=== PATIENT | male | born 2000 | race Hispanic/Latino ===

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

== ENCOUNTER 2023-02-09 12:55 | Emergency (ER) | payer BC, OTHER ==
[~2023-02-09] VITALS: Ht 180.3 cm; Wt 74.8 kg
[2023-02-09 14:10] VITALS: BP 140/75; PULSE 85; RESP 18
[2023-02-09] MEDS ORDERED: TETANUS/DIPHTHERIA TOXOID [ADULT] 0.5 ML VIAL IM ONE ×2 (18:30→19:17)
== END 2023-02-09 20:03 | disposition home or self-care (01) ==
LOC: EDH 12:55
DX: S61.411A Laceration without foreign body of right hand, initial encounter (principal); X58.XXXA Exposure to other specified factors, initial encounter; Y93.89 Activity, other specified; Y92.89 Other specified places as the place of occurrence of the external cause; Y99.8 Other external cause status
CPT/HCPCS: 12001; 90471; 90714